=== PATIENT | male | born 2000 | race Caucasian/White ===

== ENCOUNTER 2019-03-06 09:08 | Day surgery (SDC) | payer OTHER ==
[~2019-03-06 09:08] MED LIST: Buffered Lidocaine 1% SYRIN* 1 ML/SYRINGE INTRADERM ONE; Lactated Ringers 1000 ML Bag* 1,000 ML IV SCH; ceFAZolin 2 GM PREMIX in ORs 2 GM/50 ML BAG ONE
[2019-03-06] MEDS ORDERED: Bupivacaine 0.5% SDV PF* 30ML VIAL ONE (10:41)
[2019-03-06] MEDS ORDERED: DiMENhydriNATE IV* 50 MG/ML VIAL IV PUSH PRN (11:03)
[2019-03-06] MEDS ORDERED: Acetaminophen TAB* 325 MG PO PRN (11:03)
[2019-03-06] MEDS ORDERED: Naloxone* 0.4 MG/ML 1 ML VIAL IV PRN (11:03)
[2019-03-06] MEDS ORDERED: oxyCODONE TAB* 5 MG TAB PO PRN (11:03)
[2019-03-06] MEDS ORDERED: fentaNYL* 50 MCG/ML 2 ML VIAL (100 MCG VIAL) IV PRN (11:03)
[2019-03-06 13:43] VITALS: BP 113/71
[2019-03-06] MEDS ORDERED: Dexamethasone IV* 4 MG/ML 1 ML (4 MG) ONE (14:03)
[2019-03-06] MEDS ORDERED: Midazolam* 1 MG/ML 2 ML VIAL (2 MG) ONE (14:03)
[2019-03-06] MEDS ORDERED: Ondansetron INJ* 2 MG/ML VIAL ONE (14:03)
[2019-03-06] MEDS ORDERED: Ketorolac INJ* 30 MG/ML 1 ML VIAL ONE (14:03)
[2019-03-06] MEDS ORDERED: fentaNYL* 50 MCG/ML 2 ML VIAL (100 MCG VIAL) ONE (14:03)
[2019-03-06] MEDS ORDERED: Metoclopramide IV* 5 MG/ML 2 ML VIAL ONE (14:03)
[2019-03-06] MEDS ORDERED: Succinylcholine* 20 MG/ML 10 ML VIAL ONE (14:03)
--- NOTE | 2019-03-06 15:05 | OP ---
Operative Report - Blank - Operative Report Date of Operation: 03/06/19 Note: PATIENT: Jamari Camarena DATE OF : 2000 DATE OF SURGERY: 03/06/2019 SURGEON: Aaron Rueda MD FINANCE MGR: MORIAH Pacheco, whos assistance was necessary for positioning, retraction, help with instrumentation, and closure. ANESTHESIOLOGIST: Dr. 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 Right calcaneal ostectomy with excision of Nadege's deformity 2. Right retrocalcaneal bursa debridement and Achilles tenolysis ANESTHESIA: GETA IMPLANTS: none TOURNIQUET TIME: Less than 60 minutes with a well-padded thigh tourniquet at 250mmHg SPECIMENS: none ESTIMATED BLOOD LOSS: minimal COMPLICATIONS: none STATUS: Stable from the operating room to the recovery room and then home. INDICATIONS FOR PROCEDURE: Adán has been doing with a painful right Nadege's deformity and retrocalcaneal bursitis, refractory to nonoperative treatment. Both operative and non operative treatment alternatives were reviewed. Further, the nature and risks of surgery were reviewed in careful detail in the office as well as in the preoperative holding area. Our discussions regarding the risks of surgery included, but were not limited to, infection, wound problems, nerve injury, neuroma, RSD, persistent symptoms, blood clot, Achilles rupture, failure of the surgery, and even the remote chance of catastrophic complication. DESCRIPTION OF PROCEDURE: The patient was seen in the preoperative holding unit and informed written consent was obtained. The appropriate extremity was marked. The patient was then brought to the operating room and carefully positioned on the operating room table in the prone position. Anesthesia was induced. All bony prominences were padded with great care. A well-padded thigh tourniquet was placed. A chlorhexidine based pre-scrub was performed followed by a chloraprep prep and drape in standard sterile fashion. A surgical safety pause was then conducted in which we confirmed the appropriate patient, extremity, planned procedure, availability of equipment, indication and administration of prophylactic antibiotics, and DVT prophylaxis in the form of a compression boot on the non- surgical extremity. Exsanguination of the extremity was performed and the tourniquet was inflated. I began by utilizing a longitudinal incision overlying the medial border of the Achilles from its insertion proximally. We carefully dissected down to the tendon and bone. I identified the Nadege's deformity and used an osteotome to carefully resect the posterior-superior corner of the calcaneus without disrupting the Achilles tendon or its insertion. I then debrided the inflamed retrocalcaneal bursa with a scalpel and rongeur. There is some adhesions anterior to the Achilles tendon which were carefully released. Fluoroscopy was used to confirm an adequate resection of the bone. The wound was then copiously irrigated and meticulously closed in layers utilizing 3-0 Monocryl for the subdermal layer, and 3-0 nylon for the skin. A sterile dressing was then applied followed by a splint with the ankle in a neutral position. The patient was then awakened from anesthesia and transferred to the recovery room in stable condition. There were no complications. All needle and sponge counts were correct at the end of the case. ATTESTATION: I attest I was present and scrubbed and performed the critical portions of the procedure myself. POSTOPERATIVE PLAN: The patient will follow up in two weeks for likely suture removal and Steri-Strip application. We will plan on transitioning him to a tall boot at that time and initiate a progression of weightbearing.
== END 2019-03-06 13:30 | disposition home or self-care (01) ==
LOC: OREAST 09:08
PROVIDERS: ATTEND Orthopaedic Surgery
DX: M92.61 Juvenile osteochondrosis of tarsus, right ankle (principal); M77.51 Other enthesopathy of right foot and ankle
CPT/HCPCS: 76000; J0330; J0690; J1100; J1885; J2250; J2405; J2765; J3010; J3490